=== PATIENT | male | born 1995 | race Two or more races ===

== ENCOUNTER → 2020-05-15 | Emergency (ER) | payer OTHER ==
[~2020-05-15] VITALS: Ht 165.1 cm; Wt 72.6 kg
[~2020-05-15] MED LIST: AMOX-CLAV 875-1 EACH PO; KETO10TA2 PO
== END | disposition left against medical advice (07) ==
LOC: ER 01:48
DX: S68.123A Partial traumatic metacarpophalangeal amputation of left middle finger, initial encounter (principal); S80.212A Abrasion, left knee, initial encounter; W23.0XXA Caught, crushed, jammed, or pinched between moving objects, initial encounter; Y04.2XXA Assault by strike against or bumped into by another person, initial encounter; Y93.89 Activity, other specified; Y92.59 Other trade areas as the place of occurrence of the external cause; Y99.8 Other external cause status